=== PATIENT | male | born 1985 | race Caucasian/White ===

== ENCOUNTER 2019-11-05 16:30 | Emergency (ER) | payer OTHER, SELFPAY ==
--- NOTE | 2019-11-05 16:39 | ED.GENADULT ---
HPI - General Adult General Chief complaint: Eye Problems Stated complaint: Infection under eye Time Seen by Provider: 11/05/19 16:39 Source: patient Mode of arrival: ambulatory Limitations: no limitations History of Present Illness HPI narrative: 34-year-old male patient presents to the [facility] care accompanied by his caregiver with complaints of a rash under the right eyelid started bothering him yesterday but they noticed increased redness today. Patient states it is slightly painful especially when rubbing it. Denies any vision changes or pain to the actual eye itself. Denies any fevers, chills or body aches. Related Data Allergies Allergy/AdvReac Type Severity Reaction Status Date / Time caffeine Allergy Unknown Unknown Verified 04/15/19 09:29 tazarotene Allergy Unknown Verified 04/15/19 09:29 tetanus and diphtheria Allergy Unknown Verified 04/15/19 09:29 toxoids FAMILY REQ MEDS TIMED PER [facility] Allergy Unknown . Uncoded 04/15/19 09:29 LIST Review of Systems Review of Systems: Narrative: CONSTITUTIONAL: Denies fever, chills, or sweats. EYES: Denies visual changes, redness, or discharge. ENT: Denies rhinorrhea, congestion, sore throat, or otalgia. CARDIOVASCULAR: Denies chest pain, palpitations, or edema. RESPIRATORY: Denies cough or dyspnea. GASTROINTESTINAL: Denies abdominal pain, nausea, vomiting, or diarrhea. GENITOURINARY: Denies dysuria or hematuria. SKIN: Denies rash or itching. Positive rash to right cheek area MUSCULOSKELETAL: Denies back pain, joint pain, or myalgia. NEUROLOGIC: Denies headache, numbness, or weakness. PSYCHIATRIC: Denies anxiety or depression. [facility] Past Medical History Medical History (Updated 11/05/19 @ 16:57 by ISIDRA Carbajal) Epilepsy Fractures Right arm Hypothyroidism Seizures Comments At the time of my signature I agree with nursing past medical history, surgical, social, and family history. There is no relevant family history pertinent to the presenting complaint. Exam Narrative: Exam Narrative: GENERAL: Well-appearing, well-nourished, and in no acute distress. HEAD: Normocephalic, atraumatic. EYES: PERRLA and EOM intact without limitation or complaint of pain, no periorbital soft tissue swelling , some soft tissue swelling noted to the inner canthi and test that extends down to the cheek area. On the right side no erythema, warmth or tenderness noted, no obvious deformity. No crusting or swelling.no tearing or draining.No photophobia. No nystagmus No FB or lesion on lid eversion. Corneas grossly clear, no obvious FB or hyphens/hypopyon. No injection to sclera. Lids and lashes clear. ENT: Nares clear, no rhinorrhea or epistaxis. Mucous membranes moist. NECK: Supple. No lymphadenopathy CHEST: Clear to auscultation. No respiratory distress. HEART: Regular rate and rhythm. No murmur heard. Normal peripheral pulses. ABDOMEN: Soft, nontender, nondistended, normal active bowel sounds. EXTREMITIES: Normal range of motion. No edema. SKIN: Warm, dry, no rash. Patient has erythema and swelling noted to the right side of the nose along the cheek and some swelling right under the inner canthi canthus of the right eye. Area is slightly warm to the touch and tender NEURO: No focal deficits. Alert and oriented x3. Course Vital Signs Vital signs: Vital signs reviewed. Medical Decision Making Differential Diagnosis Differential Diagnosis: Differential diagnosis: Conjunctivitis, foreign body, corneal ulcer, Keratitis, dendritic lesions, corneal abrasion, very orbital infection, orbital cellulitis, orbital pain, acute narrow angle glaucoma, detached retina, central retinal artery occlusion, complete hyphema, vitreous hemorrhage, optic neuritis, globe disruption. Contact dermatitis, poison emely, poison sumac, psoriasis, eczema, allergic reaction, drug reaction, scabies, tinea syphilis, lung disease, viral exanthema, pityriasis, erythema multiforme. Abscess, cellulitis, hidradenitis, lac
[2019-11-05 16:43] VITALS: BP 118/75; PULSE 93; RESP 18; TEMP 37.2; O2SAT 97
== END 2019-11-05 16:43 | disposition home or self-care (01) ==
PROVIDERS: Emergency Provider Nurse Practitioner Family; PCP Family Medicine
DX: L03.211 Cellulitis of face (principal); G40.909 Epilepsy, unspecified, not intractable, without status epilepticus; E03.9 Hypothyroidism, unspecified
CPT/HCPCS: 99213; G0463

== ENCOUNTER 2020-12-05 09:23 | Emergency (ER) | payer OTHER, SELFPAY ==
--- NOTE | ~2020-12-05 | XR_ITS ---
EXAMINATION: XR chest 1V portable INDICATION: Weakness and dizziness TECHNIQUE: Portable AP chest at 0954 hours COMPARISON: 01/28/2019 FINDINGS: There are minimal airspace opacities of the left lung base.. There is no pleural effusion o r pneumothorax. The cardiomediastinal silhouette is normal. A left-sided carotid body stimulator is n oted. IMPRESSION: 1. Minimal left basilar airspace opacity, consistent with atelectasis versus pneumonia. Reviewed, dictated and finalized at location B. IMPRESSION: 1. Minimal left basilar airspace opacity, consistent with atelectasis versus pn eumonia.
--- NOTE | ~2020-12-05 | CT_ITS ---
EXAMINATION: CT brain wo con INDICATION: Dizziness and weakness COMPARISON: 12/02/2018 TECHNIQUE: Standard unenhanced head CT. The dose-length product (DLP) was 605.33 mGy-cm. The mA was a djusted according to patient size. Iterative reconstruction technique was employed. FINDINGS: Changes of left craniotomy are noted. There is CSF attenuation throughout nearly the entire left hemisphere with only a small amount of residual brain parenchyma and the basal ganglia on. The right-sided ventricles are normal. There is no abnormal mass effect or midline shift. The lacy-white matter differentiation on the right is normal. The basal cisterns are patent. The orbits are normal. A polyp or mucous retention cyst is present in the right maxillary sinus. IMPRESSION: 1. Chronic volume loss involving essentially the entire left hemisphere without acute intracranial ab normality. Reviewed, dictated and finalized at location B. IMPRESSION: 1. Chronic volume loss involving essentially the entire left hemisphere without acute intracranial abnormality.
--- NOTE | 2020-12-05 09:34 | ECG_ITS ---
Measurements Intervals [place] Rate: 65 P: 50 AR: 130 QRS: 43 QRSD: 96 T: 43 QT: 368 QTc: 383 Interpretive Statements SINUS RHYTHM EARLY PRECORDIAL R/S TRANSITION MINIMAL Q WAVES- INFERIOR LEADS BASELINE ARTIFACT- I, II, AVR BORDERLINE ECG Electronically Signed On 12-05-2020 9:48:48 CDT by Rohit Ge D.O.
[2020-12-05 09:35] VITALS: BP 123/99; PULSE 68; RESP 20; TEMP 36.3; O2SAT 100
[2020-12-05 09:54] LABS: Basophils Percent Auto 0.5 % (0.2-1.2); Eosinophils Percent Auto 0.4 % (0-4.4); Hematocrit 52.4 % (42.0-52.0); Hemoglobin 16.2 g/dL (14.0-18.0); Immature Granulocyte Absolute 0.03 K/mm3 (0.00-0.031); Immature Granulocyte Percent A 0.4 % (0-0.5); Lymphocytes Absolute Auto 3.06 K/mm3 (0.9-3.2); Lymphocytes Percent Auto 36.6 % (18.3-44.2); Mean Corpuscular HGB Conc 30.9 g/dl (32-36); Mean Corpuscular Hemoglobin 29.6 pg (26-34); Mean Corpuscular Volume 95.6 fl (80-100); Mean Platelet Volume 10.6 fl (7.4-10.4); Monocytes Absolute Auto 0.7 K/mm3 (0.1-0.6); Monocytes Percent Auto 7.8 % (2.6-8.5); Neutrophils Absolute Auto 4.6 K/mm3 (1.3-6.7); Neutrophils Percent Auto 54.3 % (45.5-73.1); Platelet Count Result 190 k/mm3 (150-375); Red Blood Count 5.48 M/mm3 (4.6-6.20); Red Cell Distribution Width 13.9 % (11.5-14.5); White Blood Count 8.4 K/mm3 (4.5-10.0)
[2020-12-05] MEDS: SODIUM CHLORIDE 0.9% IV 1,000 ML 999 ML IV CONT (10:04)
[2020-12-05 10:05] VITALS: BP 107/89; PULSE 67; RESP 22; O2SAT 100
[2020-12-05 10:10] LABS: Alanine Aminotransferase 67 U/L (4-50); Albumin Level 4.8 g/dL (3.5-5.1); Alkaline Phosphatase 56 U/L (38-126); Anion Gap 12 mmol/L (8-16); Aspartate Amino Transferase 100 U/L (17-59); Bilirubin,Total 0.6 mg/dL (0.2-1.3); Blood Urea Nitrogen 10 mg/dL (9-20); Calcium 9.8 mg/dL (8.4-10.2); Carbon Dioxide 29 mmol/L (22-30); Chloride 101 mmol/L (98-107); Estimated CRCL calculation 76 ml/min; Estimated Glomerular Filt Rate > 60; Glucose 122 mg/dL (65-110); Lipase 59 U/L (23-300); Potassium 3.6 mmol/L (3.4-5.0); Sodium 142 mmol/L (137-145)
[2020-12-05 10:10] LABS: Add Urine Microscopic? YES; Appearance Urine Clear (Clear); Bilirubin Urine Negative (Negative); Blood Urine Negative (Negative); Color Urine Amber (Yellow); Glucose Urine UA Negative (Negative); Ketones Urine Negative (Negative); Leukocyte Esterase Ur Negative LEU/UL (Negative); Mucus Urine Heavy /lpf; Nitrate Urine Negative (Negative); Protein Urine 1+ mg/dL (Negative); Specific Grav Ur 1.025 (1.001-1.035); Squamous Epithelial Cell Urine Rare /hpf (Few); WBC Urine 0-3 /hpf
[2020-12-05 10:27] LABS: Prothrombin Time 12.8 Seconds (11.1-14.7)
[2020-12-05 10:28] LABS: Partial Thromboplastin Time 20.5 SECONDS (22.3-36.8)
[2020-12-05 10:29] LABS: Lactic Acid Reflex 2.3 mmol/L (0.7-2.1)
[2020-12-05 10:52] LABS: CRP < 0.5 mg/dL (<1.0)
[2020-12-05 11:35] VITALS: BP 112/71; PULSE 78; RESP 20; O2SAT 100
--- NOTE | 2020-12-05 12:33 | ED.GENADULT ---
HPI - General Adult General Chief complaint: Dizziness Stated complaint: weak, lightheaded, nausea Time Seen by Provider: 12/05/20 09:31 Source: patient, family, RN notes reviewed and old records reviewed Mode of arrival: ambulatory Limitations: no limitations History of Present Illness HPI narrative: Patient is a 35-year-old male who presents for evaluation of nausea and vomiting and feeling slightly dizzy today patient presents from long term where he lives is followed by neurology and primary care patient has had intermittent emesis has had similar occurrence in the past on arrival patient laying in bed does not appear distressed or uncomfortable Related Data Home Medications Medication Instructions Recorded Confirmed atorvastatin [Lipitor] 80 mg PO DAILY 11/05/19 11/05/19 benzoyl peroxide [Acne Medication] 1 applic TOPICAL DAILY 11/05/19 11/05/19 divalproex [Depakote ER] 1 mg PO BID 11/05/19 11/05/19 doxycycline monohydrate 100 mg PO BID 11/05/19 11/05/19 ergocalciferol (vitamin D2) 11/05/19 lacosamide [Vimpat] 200 mg PO Q12H 11/05/19 11/05/19 lactulose 11/05/19 lamotrigine [Lamictal] 100 mg PO DAILY 11/05/19 11/05/19 levetiracetam [Keppra] 1,000 mg PO QID 11/05/19 11/05/19 levothyroxine 25 mcg PO DAILY 11/05/19 11/05/19 loratadine [Claritin] 10 mg PO DAILY 11/05/19 11/05/19 Allergies Allergy/AdvReac Type Severity Reaction Status Date / Time caffeine Allergy Unknown Unknown Verified 12/05/20 09:43 tazarotene Allergy Unknown Unknown Verified 12/05/20 09:43 tetanus and diphtheria Allergy Unknown Unknown Verified 12/05/20 09:43 toxoids divalproex sodium Allergy Seizure Verified 12/05/20 09:43 FAMILY REQ MEDS TIMED PER [facility] Allergy Unknown . Uncoded 04/15/19 09:29 LIST Review of Systems Review of Systems: All systems reviewed & are unremarkable except as noted in HPI and below PMFSH Past Medical History Medical History Epilepsy Fractures Right arm Hypothyroidism Seizures Social History Social History Gender identity (if verbalized by the patient): Male Exam Narrative: GENERAL: Well-appearing, well-nourished, and in no acute distress. HEAD: Normocephalic, atraumatic. EYES: PERRLA and EOMI. ENT: Nares clear, no rhinorrhea or epistaxis. Mucous membranes moist. CHEST: Clear to auscultation. No respiratory distress. No wheezes rales or rhonchi HEART: Regular rate and rhythm. No murmur heard. Normal peripheral pulses. ABDOMEN: Soft, nontender, nondistended EXTREMITIES: Normal range of motion. No edema. SKIN: Warm, dry, no rash. NEURO: No focal deficits. Alert and oriented x3. Cranial nerves II through XII grossly intact PSYCH: Normal mood and affect. Course Course Emergency Course: Patient evaluated in the emergency department for nausea vomiting and was hydrated no high risk changes in his evaluation today will be discharged back with follow-up with his primary care doctor they aware of discussion with primary care senior chemical engineer is present with patient he is nontoxic-appearing tolerating p.o. intake in no distress has no pain Consultations Consultation #1: Discussed case with Dr. Hi primary care he would like the patient sent back on Zofran and will be reevaluated in clinic Date: 12/05/20 Time: 13:17 Vital Signs Vital signs: Vital Signs Temperature 97.4 F L 12/05/20 09:35 Pulse Rate 68 12/05/20 09:35 Respiratory Rate 20 12/05/20 09:35 Blood Pressure 123/99 H 12/05/20 09:35 Pulse Oximetry 100 12/05/20 09:35 Temperature 97.4 F L 12/05/20 09:35 Pulse Rate 88 12/05/20 13:04 Respiratory Rate 22 H 12/05/20 13:04 Blood Pressure 104/75 12/05/20 13:04 Pulse Oximetry 97 12/05/20 13:04 Medical Decision Making MDM Narrative Medical decision making narrative: Patient with nausea and vomiting no distress tolerating p.o. intake nontender abdominal exam
[2020-12-05 13:04] VITALS: BP 104/75; PULSE 88; RESP 22; O2SAT 97
[2020-12-05 13:13] LABS: Reflex Lactic Acid Yes or No Add Lactic
[2020-12-05 14:04] VITALS: BP 109/80; PULSE 89; RESP 16; O2SAT 100
== END 2020-12-05 14:05 | disposition home or self-care (01) ==
PROVIDERS: Emergency Medicine Emergency Medical Services; Emergency Provider Emergency Medicine; PCP Family Medicine
DX: R11.2 Nausea with vomiting, unspecified (principal); G40.909 Epilepsy, unspecified, not intractable, without status epilepticus; E03.9 Hypothyroidism, unspecified; R94.31 Abnormal electrocardiogram [ECG] [EKG]
CPT/HCPCS: 36415; 70450; 71045; 80053; 80164; 81001; 83605; 83690; 85025; 85610; 85730; 86140; 87040; 93005; 96360; 99284; J7030

== ENCOUNTER 2020-12-20 08:41 | Emergency (ER) | payer OTHER, SELFPAY ==
[2020-12-20 08:45] VITALS: BP 134/94; PULSE 91; RESP 16; TEMP 36.4; O2SAT 100
--- NOTE | 2020-12-20 08:53 | ECG_ITS ---
Measurements Intervals [place] Rate: 84 P: 51 DC: 125 QRS: 50 QRSD: 91 T: 50 QT: 316 QTc: 375 Interpretive Statements SINUS RHYTHM BASELINE ARTIFACT- I, II, AVR, AVL NORMAL ECG Electronically Signed On 12-20-2020 9:31:18 CDT by Rohit Ge D.O.
[2020-12-20 10:14] LABS: Basophils Percent Auto 0.6 % (0.2-1.2); Eosinophils Absolute Auto 0.1 K/mm3 (0-0.3); Eosinophils Percent Auto 1.3 % (0-4.4); Hematocrit 54.7 % (42.0-52.0); Hemoglobin 17.1 g/dL (14.0-18.0); Immature Granulocyte Absolute 0.01 K/mm3 (0.00-0.031); Immature Granulocyte Percent A 0.2 % (0-0.5); Lymphocytes Percent Auto 61.5 % (18.3-44.2); Mean Corpuscular HGB Conc 31.3 g/dl (32-36); Mean Corpuscular Hemoglobin 29.7 pg (26-34); Mean Corpuscular Volume 95.1 fl (80-100); Mean Platelet Volume 11.2 fl (7.4-10.4); Monocytes Absolute Auto 0.5 K/mm3 (0.1-0.6); Monocytes Percent Auto 9.2 % (2.6-8.5); Neutrophils Absolute Auto 1.4 K/mm3 (1.3-6.7); Neutrophils Percent Auto 27.2 % (45.5-73.1); Platelet Count Result 181 k/mm3 (150-375); Red Blood Count 5.75 M/mm3 (4.6-6.20); Red Cell Distribution Width 14.2 % (11.5-14.5); White Blood Count 5.2 K/mm3 (4.5-10.0)
[2020-12-20 10:29] LABS: Anion Gap 11 mmol/L (8-16); Blood Urea Nitrogen 11 mg/dL (9-20); Calcium 10.4 mg/dL (8.4-10.2); Carbon Dioxide 30 mmol/L (22-30); Chloride 100 mmol/L (98-107); Estimated CRCL calculation 77 ml/min; Estimated Glomerular Filt Rate > 60; Glucose 84 mg/dL (65-110); Potassium 4.7 mmol/L (3.4-5.0); Sodium 141 mmol/L (137-145)
--- NOTE | 2020-12-20 10:49 | PC.NURSE ---
Ambulatory out of dept with staff from [facility].
== END 2020-12-20 10:49 | disposition left against medical advice (07) ==
PROVIDERS: Emergency Provider General Practice; PCP Family Medicine
DX: Z53.21 Procedure and treatment not carried out due to patient leaving prior to being seen by health care provider (principal)
CPT/HCPCS: 36415; 80048; 85025; 93005; 99199

== ENCOUNTER 2021-01-17 08:10 | Outpatient (CLI) | payer OTHER, SELFPAY ==
--- NOTE | ~2021-01-17 | US_ITS ---
EXAMINATION: US right upper quadrant DATE: 01/17/2021 14:50 INDICATION: Abnormal liver function tests. TECHNIQUE: Multiple grayscale and Doppler ultrasound images of the abdomen were obtained. COMPARISON: None FINDINGS: The visualized portions of the head, body, and tail of the pancreas are normal. The liver i s normal without focal lesion. No liver surface nodularity. There is normal flow in main portal vein. The gallbladder is normal in size. No gallstones or gallbladder wall thickening. There was no sonogr aphic Osman sign. The common duct is normal and measures 4 mm. IMPRESSION: 1. Normal right upper quadrant ultrasound. Reviewed, dictated and finalized at location A.
== END 2021-01-17 08:11 | disposition home or self-care (01) ==
LOC: ANHIMG 08:16
PROVIDERS: PCP Family Medicine
DX: R79.89 Other specified abnormal findings of blood chemistry (principal)
CPT/HCPCS: 76705

== ENCOUNTER 2021-03-15 00:10 | Day surgery (SDC) | payer OTHER, SELFPAY ==
[2021-03-06 14:55] VITALS: BMI 23.7
[2021-03-15 08:50] VITALS: BP 118/81; PULSE 78; RESP 18; TEMP 35.7; O2SAT 100
[2021-03-15] MEDS: LACTATED RINGERS 1,000 ML 150 ML IV CONT (08:51)
--- NOTE | 2021-03-15 09:06 | WPDANESEPPF ---
Anes - Initial Pre Proc Eval Procedure: Operation Date: 03/15/21 10:00 Proposed Procedures p Esophagogastroduodenoscopy - Jeramie Zelaya MD Date/Time: 03/15/21 09:06 Surgeon: Jeramie Zelaya MD Pre Op Diagnosis: nausea, vomiting Patient Data Age: 36 Gender: M Height: 1.63 m Weight: 63 kg Last Vital Signs Temp 35.7 C L 03/15/21 08:50 Pulse 78 03/15/21 08:50 Resp 18 03/15/21 08:50 BP 118/81 03/15/21 08:50 Pulse Ox 100 03/15/21 08:50 Allergies Allergy/AdvReac Type Severity Reaction Status Date / Time tazarotene Allergy Unknown Unknown Verified 03/15/21 08:48 tetanus and diphtheria Allergy Unknown Unknown Verified 03/15/21 08:48 toxoids divalproex sodium Allergy Seizure Verified 03/15/21 08:48 caffeine AdvReac Unknown Unknown Verified 03/15/21 08:48 FAMILY REQ MEDS TIMED PER [place] Allergy Unknown . Uncoded 03/15/21 08:48 LIST Home Medications Medication Instructions Recorded Confirmed Type doxycycline monohydrate 100 mg PO BID 11/05/19 03/15/21 History lamotrigine [Lamictal] 100 mg PO DAILY 11/05/19 03/15/21 History levetiracetam [Keppra] 1,000 mg PO BID 11/05/19 03/15/21 History levothyroxine 25 mcg PO DAILY 11/05/19 03/15/21 History loratadine [Claritin] 10 mg PO DAILY 11/05/19 03/15/21 History famotidine [Pepcid] 20 mg PO BID #14 tablet 12/05/20 03/15/21 Rx ondansetron 4 mg PO Q8H PRN #7 tablet 12/05/20 03/15/21 Rx acetaminophen [Mapap 650 mg PO Q4H PRN 03/06/21 03/15/21 History (acetaminophen)] alum-mag hydroxide-simeth [Mintox] 30 ml PO Q4H PRN 03/06/21 03/15/21 History benzoyl peroxide 1 applic TOPICAL HS 03/06/21 03/15/21 History bisacodyl 10 mg PO DAILY PRN 03/06/21 03/15/21 History bismuth subsalicylate [Bismatrol] 524 mg PO Q3H PRN MDD 8 03/06/21 03/15/21 History diphenhydramine HCl 25 mg PO Q6H PRN 03/06/21 03/15/21 History divalproex [Depakote] 250 mg PO BID 03/06/21 03/15/21 History divalproex [Depakote] 500 mg PO HS 03/06/21 03/15/21 History ergocalciferol (vitamin D2) 50,000 unit PO WEEKLY 03/06/21 03/15/21 History fenofibrate 120 mg PO DAILY 03/06/21 03/15/21 History guaifenesin [Robafen] 200 mg PO Q4H PRN 03/06/21 03/15/21 History lacosamide [Vimpat] 200 mg PO BID 03/06/21 03/15/21 History lactulose [Kristalose] 20 g PO DAILY 03/06/21 03/15/21 History levetiracetam 1,000 mg PO HS 03/06/21 03/15/21 History levocarnitine [L-Carnitine] 1,000 mg PO BID 03/06/21 03/15/21 History meclizine 25 mg PO DAILY 03/06/21 03/15/21 History Patient hx anesthesia problems: none Family hx anesthesia problems: none Results Review: All pre-operative results and documents have been reviewed as part of the pre-operative evaluation. [facility] Past Medical History Medical History Elevated liver enzymes Epilepsy Fractures Right arm Hypothyroidism Mental disability Seizures Social History Social History Smoking status: Never smoker Alcohol intake: never Substance use: never Living arrangements: penitentiary Gender identity (if verbalized by the patient): Male Spiritual care concerns: No Anes - Eval Final PreProcedure Day of Procedure 03/15/21 09:06 Patient weight: normal Heart: regular rate and rhythm Lungs: clear to auscultation Airway: Mallampati scale class II Neurological: alert and oriented Last oral intake: >/= 8 hours ASA classification: III Emergent: no Anesthetic plan: proceed Anesthesia type and monitoring: general GIVS and standard monitoring Results Review: All pre-operative results and documents have been reviewed as part of the pre-operative evaluation. Informed Consent: The patient's anesthetic plan and its attendant risks and benefits were discussed with the patient/family/POA. Questions were solicited and answers provided to the satisfaction of the patient/family/POA.
--- NOTE | 2021-03-15 10:19 | PM.HPGS ---
History of Present Illness History of Present Illness Consent: Risks, benefits, and alternatives have been discussed and questions answered. Patient agrees to proceed with procedure. Chief complaint: nausea, vomiting Narrative: Duarte Dennis Jr. is a 36 year old male here for EGD. He has intermittent nausea and vomiting, he lives in a half-way because mental disability and seizures since , underwent brain surgery in order to control seizures as a child, about 4 yeas ago vagotomy with hopes to control seizures but no major changes Review of Systems Constitutional: Constitutional: Denies headache(s) and Denies weakness Eyes: Eyes: Denies blurry vision ENT: Reports Normal hearing present, Denies headache(s) and Denies neck pain Cardiovascular: Cardiovascular: Denies chest pain and Denies dyspnea Respiratory: Respiratory: Denies dyspnea Gastrointestinal: Gastrointestinal: Reports no additional gastrointestinal complaints Genitourinary: Genitourinary: Denies dysuria Musculoskeletal: Musculoskeletal: Denies neck pain Integumentary/Breasts: Skin/Breast: Denies dry skin Neurologic: Reports Normal hearing present, Denies headache(s) and Denies weakness Psychiatric: Psychiatric: Denies anxiety Endocrine: Endocrine: Denies change in body appearance Hematologic/Lymphatic: Hematologic/Lymphatic: Denies easy bleeding Allergic/Immunologic: Allergic/Immunologic: Denies urticaria PMFSH Past Medical History Medical History Elevated liver enzymes Epilepsy Fractures Right arm Hypothyroidism Mental disability Seizures Social History Social History Smoking status: Never smoker Alcohol intake: never Substance use: never Living arrangements: half-way Gender identity (if verbalized by the patient): Male Spiritual care concerns: No Meds Home Medications and Allergies Home Medications Medication Instructions Recorded Confirmed Type doxycycline monohydrate 100 mg PO BID 11/05/19 03/15/21 History lamotrigine [Lamictal] 100 mg PO DAILY 11/05/19 03/15/21 History levetiracetam [Keppra] 1,000 mg PO BID 11/05/19 03/15/21 History levothyroxine 25 mcg PO DAILY 11/05/19 03/15/21 History loratadine [Claritin] 10 mg PO DAILY 11/05/19 03/15/21 History famotidine [Pepcid] 20 mg PO BID #14 tablet 12/05/20 03/15/21 Rx ondansetron 4 mg PO Q8H PRN #7 tablet 12/05/20 03/15/21 Rx acetaminophen [Mapap 650 mg PO Q4H PRN 03/06/21 03/15/21 History (acetaminophen)] alum-mag hydroxide-simeth [Mintox] 30 ml PO Q4H PRN 03/06/21 03/15/21 History benzoyl peroxide 1 applic TOPICAL HS 03/06/21 03/15/21 History bisacodyl 10 mg PO DAILY PRN 03/06/21 03/15/21 History bismuth subsalicylate [Bismatrol] 524 mg PO Q3H PRN MDD 8 03/06/21 03/15/21 History diphenhydramine HCl 25 mg PO Q6H PRN 03/06/21 03/15/21 History divalproex [Depakote] 250 mg PO BID 03/06/21 03/15/21 History divalproex [Depakote] 500 mg PO HS 03/06/21 03/15/21 History ergocalciferol (vitamin D2) 50,000 unit PO WEEKLY 03/06/21 03/15/21 History fenofibrate 120 mg PO DAILY 03/06/21 03/15/21 History guaifenesin [Robafen] 200 mg PO Q4H PRN 03/06/21 03/15/21 History lacosamide [Vimpat] 200 mg PO BID 03/06/21 03/15/21 History lactulose [Kristalose] 20 g PO DAILY 03/06/21 03/15/21 History levetiracetam 1,000 mg PO HS 03/06/21 03/15/21 History levocarnitine [L-Carnitine] 1,000 mg PO BID 03/06/21 03/15/21 History meclizine 25 mg PO DAILY 03/06/21 03/15/21 History Allergies Allergy/AdvReac Type Severity Reaction Status Date / Time tazarotene Allergy Unknown Unknown Verified 03/15/21 08:48 tetanus and diphtheria Allergy Unknown Unknown Verified 03/15/21 08:48 toxoids divalproex sodium Allergy Seizure Verified 03/15/21 08:48 caffeine AdvReac Unknown Unknown Verified 03/15/21 08:48 FAMILY REQ MEDS TIMED PER [facility] Allergy Unknown . Uncoded 03/15/21 08:48 LIST V
[2021-03-15 10:38] VITALS: BP 100/69; PULSE 68; RESP 21; O2SAT 100
[2021-03-15 10:48] VITALS: BP 110/93; PULSE 73; RESP 20; O2SAT 100
[2021-03-15 10:58] VITALS: BP 117/80; PULSE 68; RESP 17; O2SAT 100
== END 2021-03-15 11:05 | disposition home or self-care (01) ==
PROVIDERS: PCP Family Medicine; Visit Provider Internal Medicine Gastroenterology
PROC: 0DJ08ZZ Inspection of Upper Intestinal Tract, Via Natural or Artificial Opening Endoscopic (ICD-10-PCS; CPT 43235; principal; 2021-03-15 10:00)
DX: R11.2 Nausea with vomiting, unspecified (principal); R74.01 Elevation of levels of liver transaminase levels; E03.9 Hypothyroidism, unspecified; G40.909 Epilepsy, unspecified, not intractable, without status epilepticus
CPT/HCPCS: 43239; 88305; J2704; J7120

== ENCOUNTER 2022-07-10 07:12 | Emergency (ER) | payer OTHER, SELFPAY ==
--- NOTE | ~2022-07-10 | CT_ITS ---
EXAMINATION: CT brain wo con DATE: 07/10/2022 08:27 INDICATION: Vertigo TECHNIQUE: Computed tomography (CT) of the head was performed without intravenous contrast. Sagittal and coronal reconstructions were performed. The mA was adjusted according to patient size. Iterative reconstruction technique was employed. The dose-length product was 529.67 mGy-cm. COMPARISON: head CT dated FINDINGS: There is a left frontal-parietal craniotomy defect. There are postsurgical changes with diffuse encep halomalacia in the left hemisphere with only minimal residual brain parenchyma in the left hemisphere and small amount of residual tissue of the left thalamus and basal ganglia. Secondary wallerian dege neration and atrophy of the left cerebral peduncle. Minimal relative atrophy of the right cerebellar hemisphere. There is marked compensatory dilation of the left lateral ventricle. No acute intracrania l hemorrhage, infarction, mass or mass effect. There is disconjugate gaze of the orbits which are oth erwise normal. Mastoid air cells and paranasal sinuses are clear. IMPRESSION: 1. Stable appearance of changes of the left hemisphere with diffuse encephalomalacia with significant ly decreased amount of brain tissue at the left basal ganglia and thalamus and minimal residual tissu e of the left cerebral hemisphere. 2: No acute intracranial abnormality. Reviewed, dictated and finalized at location L. IMPRESSION: 1. Stable appearance of changes of the left hemisphere with diffuse encephaloma lacia with significantly decreased amount of brain tissue at the left basal rosalie glia and thalamus and minimal residual tissue of the left cerebral hemisphere. 2: No acute intracranial abnormality.
[2022-07-10 07:28] VITALS: BP 135/82; PULSE 88; RESP 17
[2022-07-10 07:29] VITALS: BP 135/82; PULSE 86; PULSE 90; RESP 18; RESP 21; TEMP 36.9; O2SAT 98
[2022-07-10 07:30] VITALS: PULSE 83; RESP 16
--- NOTE | 2022-07-10 07:35 | ECG_ITS ---
Measurements Intervals [place] Rate: 83 P: 4 TN: 128 QRS: 35 QRSD: 90 T: 11 QT: 325 QTc: 384 Interpretive Statements SINUS RHYTHM BASELINE ARTIFACT- I, III, AVR, AVL, AVF, V3-V6 NORMAL ECG COMPARED TO ECG 12/20/2020 09:03:50 NO SIGNIFICANT CHANGES Electronically Signed On 07-10-2022 8:37:13 CDT by Rohit Ge D.O.
[2022-07-10 07:53] VITALS: PULSE 92; RESP 18
[2022-07-10 08:09] VITALS: PULSE 88; RESP 18
--- NOTE | 2022-07-10 08:12 | ED.GENADULT ---
HPI - General Adult General Chief complaint: Dizziness Stated complaint: Dizzy Time Seen by Provider: 07/10/22 07:27 History of Present Illness HPI narrative: 37-year-old male with history of prior brain surgery, seizures, mental disability presented to the emergency department for evaluation of vertigo. Patient states when he was walking to breakfast he had onset of a spinning sensation. Patient states he did not have any associated numbness or weakness. Patient denies any associate nausea vomiting diarrhea. Patient states he did not think he was going to pass out but did feel that he was having some additional trouble walking. Patient does live at a care facility due to prior brain surgery and underlying disability. Patient denies any change in his chronic issues. Patient denies any recent cough cold fevers. Patient denies any ear pain or ear ringing. Patient denies any associated chest pain or shortness of breath. During the exam patient denies any current dizziness and is requesting to go back to his facility. Caregiver is present during the exam. Related Data Home Medications Medication Instructions Recorded Confirmed doxycycline monohydrate 100 mg 100 mg PO BID 11/05/19 06/29/21 capsule lamotrigine 100 mg tablet 100 mg PO DAILY 11/05/19 06/29/21 (Lamictal) levetiracetam 1,000 mg tablet 1,000 mg PO BID 11/05/19 06/29/21 (Keppra) levothyroxine 25 mcg tablet 25 mcg PO DAILY 11/05/19 06/29/21 loratadine 10 mg tablet (Claritin) 10 mg PO DAILY 11/05/19 06/29/21 benzoyl peroxide 10 % topical gel 1 applic topical HS 03/06/21 06/29/21 diphenhydramine HCl 25 mg capsule 25 mg PO Q6H PRN Allergic Reaction 03/06/21 06/29/21 divalproex 250 mg tablet,delayed 250 mg PO BID 03/06/21 06/29/21 release (Depakote) divalproex 500 mg tablet,delayed 500 mg PO HS 03/06/21 06/29/21 release (Depakote) ergocalciferol (vitamin D2) 1,250 50,000 unit PO WEEKLY 03/06/21 06/29/21 mcg (50,000 unit) capsule fenofibrate 120 mg tablet 120 mg PO DAILY 03/06/21 06/29/21 guaifenesin 100 mg/5 mL oral 200 mg PO Q4H PRN Cough 03/06/21 06/29/21 liquid (Robafen) lacosamide 200 mg tablet (Vimpat) 200 mg PO BID 03/06/21 06/29/21 levetiracetam 500 mg tablet 1,000 mg PO HS 03/06/21 06/29/21 levocarnitine 500 mg tablet 1,000 mg PO BID 03/06/21 06/29/21 (L-Carnitine) lactulose 20 gram oral packet 20 g PO BID 06/29/21 06/29/21 (Kristalose) Allergies Allergy/AdvReac Type Severity Reaction Status Date / Time tazarotene Allergy Unknown Unknown Verified 06/29/21 10:32 tetanus and diphtheria Allergy Unknown Unknown Verified 06/29/21 10:32 toxoids divalproex sodium Allergy Seizure Verified 06/29/21 10:32 caffeine AdvReac Unknown Unknown Verified 06/29/21 10:32 FAMILY REQ MEDS TIMED PER [place] Allergy Unknown . Uncoded 03/15/21 08:48 LIST Review of Systems Review of Systems: All systems reviewed & are unremarkable except as noted in HPI and below PMFSH Past Medical History Medical History Diarrhea Elevated liver enzymes Epilepsy Fractures Right arm Hypothyroidism Mental disability Nausea Seizures Social History Social History Alcohol intake: never Substance use: never Living arrangements: [facility] Gender identity (if verbalized by the patient): Male Spiritual care concerns: No Exam Narrative: APPEARANCE: Well appearing, no pain, no distress, well-nourished. HEAD: normocephalic, atraumatic. EYES: PERRLA/EOMI, conjunctivae clear. NOSE: Normal no drainage EARS:TMS clear with good light reflex. THROAT: Pharynx clear, no exudate. NECK: Supple. No adenopathy, no masses. RESPIRATORY: Airway patent, respirations nonlabored. Clear to auscultation bilaterally, no rales, rhonchi, wheezing. CARDIOVASCULAR: Regular rate and rhythm without murmurs rubs or gallops. ABDOMINAL: Soft, nontender, nondistended
[2022-07-10 08:18] LABS: Basophils Percent Auto 0.5 % (0.2-1.2); Eosinophils Absolute Auto 0.3 K/mm3 (0-0.3); Eosinophils Percent Auto 4.3 % (0-4.4); Hematocrit 50.1 % (42.0-52.0); Hemoglobin 16.1 g/dL (14.0-18.0); Immature Granulocyte Absolute 0.01 K/mm3 (0.00-0.031); Immature Granulocyte Percent A 0.2 % (0-0.5); Lymphocytes Absolute Auto 3.12 K/mm3 (0.9-3.2); Lymphocytes Percent Auto 52.2 % (18.3-44.2); Mean Corpuscular HGB Conc 32.1 g/dl (32-36); Mean Corpuscular Hemoglobin 29.3 pg (26-34); Mean Corpuscular Volume 91.3 fl (80-100); Monocytes Absolute Auto 0.6 K/mm3 (0.1-0.6); Monocytes Percent Auto 9.4 % (2.6-8.5); Neutrophils Percent Auto 33.4 % (45.5-73.1); Platelet Count Result 174 k/mm3 (150-375); Red Blood Count 5.49 M/mm3 (4.6-6.20)
[2022-07-10 08:30] LABS: Alanine Aminotransferase 24 U/L (6-50); Albumin Level 4.8 g/dL (3.5-5.1); Alkaline Phosphatase 66 U/L (38-126); Anion Gap 7 mmol/L (8-16); Aspartate Amino Transferase 21 U/L (17-59); Bilirubin,Total 0.6 mg/dL (0.2-1.3); Blood Urea Nitrogen 5 mg/dL (9-20); Calcium 9.4 mg/dL (8.4-10.2); Carbon Dioxide 32 mmol/L (22-30); Chloride 98 mmol/L (98-107); Estimated CRCL calculation 105 ml/min; Estimated Glomerular Filt Rate > 60; Glucose 93 mg/dL (65-110); Potassium 3.9 mmol/L (3.4-5.0); Sodium 137 mmol/L (137-145)
[2022-07-10] MEDS: MECLIZINE HCL 25 MG TABLET PO (08:30)
[2022-07-10 10:09] VITALS: BP 111/97; PULSE 87; RESP 20; O2SAT 100
== END 2022-07-10 10:10 | disposition home or self-care (01) ==
PROVIDERS: Emergency Provider Emergency Medicine; PCP Family Medicine
DX: H81.10 Benign paroxysmal vertigo, unspecified ear (principal); G40.909 Epilepsy, unspecified, not intractable, without status epilepticus; E03.9 Hypothyroidism, unspecified; F79 Unspecified intellectual disabilities
CPT/HCPCS: 36415; 70450; 80053; 85025; 93005; 99284; A9270

== ENCOUNTER 2024-03-04 10:12 | Emergency (ER) | payer OTHER, SELFPAY ==
[2024-03-04 10:43] VITALS: BP 140/92; PULSE 88; RESP 21; TEMP 36.7; O2SAT 98
--- NOTE | 2024-03-04 10:46 | ECG_ITS ---
Test Date: 2024-03-04 10:50:25 Measurements Intervals [place] Rate: 86 P: 42 [place]: 116 QRS: 30 QRSD: 90 T: 31 QT: 334 QTc: 402 Interpretive Statements SINUS RHYTHM WITH SHORT W[place] INTERVAL NONSPECIFIC T-WAVE ABNORMALITY- INFERIOR LEADS BASELINE ARTIFACT- I, II, III, AVR, AVF BORDERLINE ECG No previous ECG available for comparison Electronically Signed On 03-04-2024 10:54:47 [employer] by Rohit Ge D.O.
[2024-03-04 11:12] LABS: Basophils Percent Auto 0.4 % (0.2-1.2); Eosinophils Absolute Auto 0.1 K/mm3 (0-0.3); Eosinophils Percent Auto 1.2 % (0-4.4); Hematocrit 47.4 % (42.0-52.0); Hemoglobin 15.6 g/dL (14.0-18.0); Immature Granulocyte Absolute 0.01 K/mm3 (0.00-0.031); Immature Granulocyte Percent A 0.1 % (0-0.5); Lymphocytes Percent Auto 47.1 % (18.3-44.2); Mean Corpuscular HGB Conc 32.9 g/dl (32-36); Mean Corpuscular Hemoglobin 29.7 pg (26-34); Mean Corpuscular Volume 90.1 fl (80-100); Mean Platelet Volume 9.8 fl (7.4-10.4); Monocytes Absolute Auto 0.5 K/mm3 (0.1-0.6); Monocytes Percent Auto 7.4 % (2.6-8.5); Neutrophils Percent Auto 43.8 % (45.5-73.1); Platelet Count Result 183 k/mm3 (150-375); Red Blood Count 5.26 M/mm3 (4.6-6.20); Red Cell Distribution Width 11.9 % (11.5-14.5); White Blood Count 6.8 K/mm3 (4.5-10.0)
[2024-03-04 11:27] LABS: Alanine Aminotransferase 17 U/L (6-50); Albumin Level 4.4 g/dL (3.5-5.1); Alkaline Phosphatase 71 U/L (38-126); Anion Gap 7 mmol/L (4-12); Aspartate Amino Transferase 18 U/L (17-59); Bilirubin,Total 0.6 mg/dL (0.2-1.3); Blood Urea Nitrogen 7 mg/dL (9-20); Calcium 8.8 mg/dL (8.4-10.2); Carbon Dioxide 31 mmol/L (22-30); Chloride 102 mmol/L (98-107); Estimated CRCL calculation 89 ml/min; Estimated Glomerular Filt Rate > 60; Glucose 90 mg/dL (65-110); Lipase 52 U/L (23-300); Potassium 3.6 mmol/L (3.4-5.0); Sodium 140 mmol/L (137-145)
--- NOTE | 2024-03-04 11:50 | ED.SEIZURE ---
HPI - Seizure General Chief Complaint: Seizure Stated Complaint: increased seizures, abdominal pain Time Seen by Provider: 03/04/24 10:39 History of Present Illness HPI Narrative: patient with history of seizures on multiple medication presents here since he has noticed an increased frequency of seizures. He is otherwise feeling fine now, last seizure was yesterday, has been taking medications as prescribed, denies any complaints, no nausea vomiting, fevers or chills, cough runny nose, dysuria or abdominal pain. Seizure History: Yes Related Data Home Medications Medication Instructions Recorded Confirmed doxycycline monohydrate 100 mg 100 mg PO BID 11/05/19 06/29/21 capsule lamotrigine 100 mg tablet 100 mg PO DAILY 11/05/19 06/29/21 (Lamictal) levetiracetam 1,000 mg tablet 1,000 mg PO BID 11/05/19 06/29/21 (Keppra) levothyroxine 25 mcg tablet 25 mcg PO DAILY 11/05/19 06/29/21 loratadine 10 mg tablet (Claritin) 10 mg PO DAILY 11/05/19 06/29/21 benzoyl peroxide 10 % topical gel 1 applic topical HS 03/06/21 06/29/21 diphenhydramine HCl 25 mg capsule 25 mg PO Q6H PRN Allergic Reaction 03/06/21 06/29/21 divalproex 250 mg tablet,delayed 250 mg PO BID 03/06/21 06/29/21 release (Depakote) divalproex 500 mg tablet,delayed 500 mg PO HS 03/06/21 06/29/21 release (Depakote) ergocalciferol (vitamin D2) 1,250 50,000 unit PO WEEKLY 03/06/21 06/29/21 mcg (50,000 unit) capsule fenofibrate 120 mg tablet 120 mg PO DAILY 03/06/21 06/29/21 guaifenesin 100 mg/5 mL oral 200 mg PO Q4H PRN Cough 03/06/21 06/29/21 liquid (Robafen) lacosamide 200 mg tablet (Vimpat) 200 mg PO BID 03/06/21 06/29/21 levetiracetam 500 mg tablet 1,000 mg PO HS 03/06/21 06/29/21 levocarnitine 500 mg tablet 1,000 mg PO BID 03/06/21 06/29/21 (L-Carnitine) lactulose 20 gram oral packet 20 g PO BID 06/29/21 06/29/21 (Kristalose) Allergies Allergy/AdvReac Type Severity Reaction Status Date / Time tazarotene Allergy Unknown Unknown Verified 03/04/24 10:13 tetanus and diphtheria Allergy Unknown Unknown Verified 03/04/24 10:13 toxoids divalproex sodium Allergy Seizure Verified 03/04/24 10:13 caffeine AdvReac Unknown Unknown Verified 03/04/24 10:13 FAMILY REQ MEDS TIMED PER [facility] Allergy Unknown . Uncoded 03/04/24 10:13 LIST Review of Systems Review of Systems: All systems reviewed & are unremarkable except as noted in HPI and below PMFSH Past Medical History Medical History Diarrhea Elevated liver enzymes Epilepsy Fractures Right arm Hypothyroidism Mental disability Nausea Seizures Social History Social History Alcohol intake: never Substance use: never Living arrangements: shelter Gender identity (if verbalized by the patient): Male Spiritual care concerns: No Exam Narrative: EXAMINATION OF ORGAN SYSTEMS/BODY AREAS: Constitutional: Vital signs per nursing GENERAL:[No acute distress, non-toxic appearing.] HEAD: Normal with no signs of head trauma. EYES: EOMI, conjunctiva normal, PERRL ENT: Hearing grossly intact LUNGS: Nonlabored breathing. HEART: [Regular rate and rhythm] ABD: [Soft], [nontender to palpation] EXT: Right arm contracted SKIN: [No rashes or lesions.] NEURO: [Alert and oriented x 3.] PSYCH: Normal affect Course Vital Signs Vital signs: Vital Signs Temperature 98.1 F 03/04/24 10:43 Pulse Rate 88 03/04/24 10:43 Respiratory Rate 21 H 03/04/24 10:43 Blood Pressure 140/92 H 03/04/24 10:43 Pulse Oximetry 98 03/04/24 10:43 Oxygen Delivery Room Air 03/04/24 10:43 Temperature 98.1 F 03/04/24 10:43 Pulse Rate 88 03/04/24 10:43 Respiratory Rate 21 H 03/04/24 10:43 Blood Pressure 140/92 H 03/04/24 10:43 Pulse Oximetry 98 03/04/24 10:43 Oxygen Delivery Autopap 03/04/24 10:47 MDM - Seizure MDM Narrative Medical decision making narrative: patient with long history of epilepsy on multiple medications and after multiple surgeries presents here with potential increased risk of seizures. He is currently asymptomatic and denies any complaints, no recent infectious symptoms, is currently neurologically at baseline. I will obtain basic workup, he has no infectious symptoms, nothing else that I feel could be triggering symptoms other than potential change in weather has has been thinners running quite a bit lately, and he has not been sleeping well which I suspect may be a trigger. Labs within acceptable limits, ask us with patient and family at bedside that he needs to call his neurologist for close follow-up and possible titration of his medications. Lab Data 03/04/24 11:03 03/04/24 11:03 Labs: Lab Results 03/04/24 Range/Units 11:03 WBC 6.8 (4.5-10.0) K/mm3 RBC 5.26 (4.6-6.20) M/mm3 Hgb 15.6 (14.0-18.0) g/dL Hct 47.4 (42.0-52.0) % MCV 90.1 (80-100) fl MCH 29.7 (26-34) pg MCHC 32.9 (32-36) g/dl RDW 11.9 (11.5-14.5) % Plt Count 183 (150-375) k/mm3 MPV 9.8 (7.4-10.4) fl Immature Gran % (Auto) 0.1 (0-0.5) % Neut % (Auto) 43.8 L (45.5-73.1) % Lymph % (Auto) 47.1 H (18.3-44.2) % [place] % (Auto) 7.4 (2.6-8.5) % Eos % (Auto) 1.2 (0-4.4) % Baso % (Auto) 0.4 (0.2-1.2) % Lymph # (Auto) 3.20 (0.9-3.2) K/mm3 [place] # (Auto) 0.5 (0.1-0.6) K/mm3 Eos # (Auto) 0.1 (0-0.3) K/mm3 Baso # (Auto) 0.0 (0.0-0.1) K/mm3 Abs Immat Gran (auto) 0.01 (0.00-0.031) K/mm3 Absolute Neuts (auto) 3.0 (1.3-6.7) K/mm3 Absolute Nucleated RBC 0.000 (0.0-0.012) K/mm3 Nucleated RBC % 0.0 (0.0-0.2) % Sodium 140 (137-145) mmol/L Potassium 3.6 (3.4-5.0) mmol/L Chloride 102 (98-107) mmol/L Carbon Dioxide 31 H (22-30) mmol/L Anion Gap 7 (4-12) mmol/L BUN 7 L (9-20) mg/dL Creatinine 0.90 (0.7-1.3) mg/dL Estim Creat Clear Calc 89 ml/min Estimated GFR > 60 (59 - ) Glucose 90 (65-110) mg/dL Calcium 8.8 (8.4-10.2) mg/dL Total Bilirubin 0.6 (0.2-1.3) mg/dL AST 18 (17-59) U/L ALT 17 (6-50) U/L Alkaline Phosphatase 71 (38-126) U/L Total Protein 8.0 (6.3-8.2) g/dL Albumin 4.4 (3.5-5.1) g/dL Lipase 52 (23-300) U/L Discharge Plan Discharge Clinical Impression: Seizures Patient Disposition: Home, Self-Care Condition: Stable Instructions: Epilepsy (ED) Additional Instructions: Please call your urologist to follow-up with them about your seizures and seizure medications as you may need a readjustment, you can always return to the emergency room for any further issues. Prescriptions: No Action levothyroxine 25 mcg Tablet 25 mcg PO DAILY doxycycline monohydrate 100 mg Capsule 100 mg PO BID lamotrigine [Lamictal] 100 mg Tablet 100 mg PO DAILY loratadine [Claritin] 10 mg Tablet 10 mg PO DAILY levetiracetam [Keppra] 1,000 mg Tablet 1,000 mg PO BID Rx Instructions: take 2 tablets every morning abd 1 tablet at bedtime Kristalose 20 gram packet 20 g PO BID famotidine [Pepcid] 20 mg tablet 20 mg PO BID Qty: 14 0RF ondansetron 4 mg tablet,disintegrating 4 mg PO Q8H PRN (Reason: nausea and vomiting) Qty: 7 0RF divalproex [Depakote] 250 mg tablet,delayed release (DR/EC) 250 mg PO BID Rx Instructions: given at 0700 and 1700 daily levetiracetam 500 mg tablet 1,000 mg PO HS divalproex [Depakote] 500 mg tablet,delayed release (DR/EC) 500 mg PO HS Rx Instructions: given at 2100 guaifenesin [Robafen] 100 mg/5 mL Liquid 200 mg PO Q4H PRN (Reason: Cough) benzoyl peroxide 10 % Gel 1 applic TOPICAL HS diphenhydramine HCl 25 mg Capsule 25 mg PO Q6H PRN (Reason: Allergic Reaction) L-Carnitine 500 mg Tablet 1,000 mg PO BID ergocalciferol (vitamin D2) 1,250 mcg (50,000 unit) capsule 50,000 unit PO WEEKLY Patient Comments: takes on fenofibrate 120 mg tablet 120 mg PO DAILY Vimpat 200 mg tablet 200 mg PO BID meclizine 25 mg tablet 25 mg PO BID PRN (Reason: dizziness) Qty: 20 0RF Follow-up/Referrals: Scott,Abril Salazar NP [Primary Care Provider] -
[2024-03-04 12:12] VITALS: BP 107/71; PULSE 83; RESP 23; TEMP 37.1; O2SAT 99
== END 2024-03-04 12:29 | disposition home or self-care (01) ==
PROVIDERS: Emergency Provider Emergency Medicine; PCP Nurse Practitioner Family
DX: R56.9 Unspecified convulsions (principal); E03.9 Hypothyroidism, unspecified
CPT/HCPCS: 36415; 80053; 83690; 85025; 93005; 99283